=== PATIENT | female | born 1970 | race Caucasian/White ===

== ENCOUNTER 2016-09-17 12:45 | Emergency (ER) | payer SELFPAY ==
[~2016-09-17] VITALS: Ht 172.7 cm; Wt 71.6 kg
[~2016-09-17 12:45] MED LIST: AMOXICILLIN250 MG PO; AMOXICILLIN500 MG PO; Aspirin E.C. PO; CHILD ASPIRIN81 M1 PO; CIPRO500 MG PO; ENDOCET 5-3251 EACH PO; KLONOPIN0.5 M1 PO; LORTAB 5-325 M1 EACH PO; MOTRIN600 MG PO; PERCOCET 5/31 TABLET PO; SKELAXIN800 MG PO; VYVANSE30 MG PO
[2016-09-17 14:00] LABS: ADD MIUA? YES; BILIRUBIN NEGATIVE; BLOOD NEGATIVE; COLOR YELLOW ((YELLOW)); GLUCOSE (STRIP) NEGATIVE; KETONES NEGATIVE; LEUKOCYTES TRACE; NITRITE NEGATIVE; PH, URINE 6.5 (5-8); PROTEIN (STRIP) NEGATIVE; SPECIFIC GRAVITY 1.008 (1.000-1.030); UROBILINOGEN 0.2 MG/DL (0.2-1.0)
[2016-09-17 14:02] LABS: HEMATOCRIT 37.8 % (36.0-46.0); MCH 29.7 PG (29.0-34.0); MCHC 32.8 G/DL (30.0-36.0); MCV 90.4 FL (83-99); MEAN PLAT.VOLUME 9.5 uM^3 (9.5-12.4); PLATELET COUNT 197 K/uL (156-360); RBC DIS.WIDTH-CV 13.5 % (11.8-14.6); RED BLOOD COUNT 4.18 M/uL (3.80-5.20); WHITE BLOOD COUNT 6.9 K/uL (4.1-10.2)
[2016-09-17 14:13] LABS: CHLORIDE 106 mEq/L (99-109)
[2016-09-17 14:14] LABS: POTASSIUM 3.6 mEq/L (3.7-5.4); SODIUM 140 mEq/L (136-147)
[2016-09-17 14:16] LABS: GLUCOSE 93 mg/dL (70-99)
[2016-09-17 14:17] LABS: ANION GAP 10 MEQ/L (2-14)
[2016-09-17 14:18] LABS: TOTAL BILIRUBIN 0.2 mg/dL (0.0-1.0)
[2016-09-17 14:19] LABS: ALKALINE PHOSPHATASE 85 IU/L (3-129); GFR ESTIMATE (CALCULATED) > 59 mL/min/
[2016-09-17 14:21] LABS: UREA NITROGEN (BUN) 7 mg/dL (9-23)
[2016-09-17 14:23] LABS: LIPASE 14 U/L (1.0-51.0)
[2016-09-17 14:28] LABS: QUANTITATIVE HCG < 4.0 MIU/ML
[2016-09-17 14:29] LABS: EPITHELIAL CELLS 1+ /HPF; MUCUS NONE SEEN /LPF; RED BLOOD CELLS 0-5 /HPF (0-5); WHITE BLOOD CELLS 0-5 /HPF (0-5)
[2016-09-17 14:30] LABS: BACTERIA RARE /HPF; CASTS NONE SEEN /LPF; CRYSTALS NONE SEEN; UCUL ADDED? NO
[2016-09-17] MEDS ORDERED: ULTRAM50 MG PO (17:50)
[2016-09-17 18:15] VITALS: BP 121/65
[2016-09-19 12:42] LABS: CHLAMYDIA TRACHOMATIS NEGATIVE; NEISSERIA GONORRHOEAE NEGATIVE
== END 2016-09-17 18:15 | disposition home or self-care (01) ==
LOC: EME 12:45
PROVIDERS: Nurse Practitioner Family
DX: N12 Tubulo-interstitial nephritis, not specified as acute or chronic (principal); F17.200 Nicotine dependence, unspecified, uncomplicated
CPT/HCPCS: 74000; 80053; 81003; 83690; 84702; 85027; 87086; 87210; 87491; 87591; 99281; 99285; J1885; J3260; J7050

== ENCOUNTER 2017-05-05 09:24 | Emergency (ER) | payer OTHER ==
[~2017-05-05] VITALS: Ht 172.7 cm; Wt 72.2 kg
[~2017-05-05 09:24] MED LIST changes: +ULTRAM50 MG PO
[2017-05-05 09:26] VITALS: BP 137/83
[2017-05-05 10:04] LABS: ADD MIUA? YES; BILIRUBIN NEGATIVE; BLOOD SMALL; COLOR YELLOW ((YELLOW)); GLUCOSE (STRIP) NEGATIVE; KETONES NEGATIVE; LEUKOCYTES SMALL; NITRITE NEGATIVE; PROTEIN (STRIP) NEGATIVE; SPECIFIC GRAVITY 1.013 (1.000-1.030); UROBILINOGEN 0.2 MG/DL (0.2-1.0)
[2017-05-05] MEDS ORDERED: VYVANSE50 MG PO (10:05)
[2017-05-05] MEDS ORDERED: PERCOCET 7.51 TABLET PO (10:05)
[2017-05-05] MEDS ORDERED: ADDERALL10 MG PO (10:06)
[2017-05-05 10:25] LABS: BACTERIA RARE /HPF; EPITHELIAL CELLS 1+ /HPF; MUCUS TRACE /LPF; UCUL ADDED? NO; WHITE BLOOD CELLS 0-5 /HPF (0-5)
[2017-05-05 11:09] LABS: EOSINOPHIL (%) 0.5 % (0-5); HEMATOCRIT 37.1 % (36.0-46.0); IMMATURE GRANULOCYTE (%) 0.3 % (0.0-0.7); INSTRUMENT ABS NEUTROPHIL CT 5.3 K/uL; LYMPHOCYTE COUNT 1.5 K/uL (1.0-2.8); MCH 28.1 PG (29.0-34.0); MCHC 31.5 G/DL (30.0-36.0); MCV 89.2 FL (83-99); MEAN PLAT.VOLUME 9.4 uM^3 (9.5-12.4); MONOCYTE (%) 6.4 % (3-12); MONOCYTE COUNT 0.5 K/uL (0-0.8); NEUTROPHIL (%) 71.8 % (45-76); NEUTROPHIL COUNT 5.3 K/uL (1.8-6.4); PLATELET COUNT 213 K/uL (156-360); RBC DIS.WIDTH-CV 13.2 % (11.8-14.6); RBC DIS.WIDTH-SD 43.7 % (39-53); RED BLOOD COUNT 4.16 M/uL (3.80-5.20); WHITE BLOOD COUNT 7.4 K/uL (4.1-10.2)
[2017-05-05 11:19] LABS: CHLORIDE 107 mEq/L (99-109); POTASSIUM 3.9 mEq/L (3.7-5.4); SODIUM 140 mEq/L (136-147)
[2017-05-05 11:21] LABS: GLUCOSE 90 mg/dL (70-99)
[2017-05-05 11:22] LABS: ANION GAP 9 MEQ/L (2-14)
[2017-05-05 11:23] LABS: TOTAL BILIRUBIN 0.2 mg/dL (0.0-1.0)
[2017-05-05 11:25] LABS: ALKALINE PHOSPHATASE 90 IU/L (3-129); GFR ESTIMATE (CALCULATED) > 59 mL/min/
[2017-05-05 11:26] LABS: UREA NITROGEN (BUN) 8 mg/dL (9-23)
== END 2017-05-05 12:00 | disposition left against medical advice (07) ==
LOC: EME 09:24
PROVIDERS: Physician Assistant
DX: N23 Unspecified renal colic (principal); Z87.440 Personal history of urinary (tract) infections; F17.200 Nicotine dependence, unspecified, uncomplicated
CPT/HCPCS: 80053; 81003; 83605; 85025; 99281; 99284